=== PATIENT | male | born 1985 | race Caucasian/White ===

== ENCOUNTER 2020-05-16 20:55 | Emergency (ER) | payer OTHER ==
[~2020-05-16] VITALS: Ht 172.7 cm; Wt 83.9 kg
[2020-05-16 21:06] VITALS: BP 124/68
--- NOTE | 2020-05-16 21:25 | NUR ---
KATELIN MEADOWS AT BEDSIDE FOR DERMABOND PROCEDURE.
[2020-05-16] MEDS ORDERED: TDAP [DIPH/PERTUSSIS/TET] 0.5 ML VIAL IM ONE ×2 (21:28→21:30)
--- NOTE | 2020-05-16 21:33 | NUR ---
TECH AT BEDSIDE FOR RIGHT FINGER SPLINT.
== END 2020-05-16 21:44 | disposition home or self-care (01) ==
LOC: ER 20:59
DX: S61.011A Laceration without foreign body of right thumb without damage to nail, initial encounter (principal); W26.0XXA Contact with knife, initial encounter; Y93.89 Activity, other specified; Y92.89 Other specified places as the place of occurrence of the external cause; Y99.8 Other external cause status
CPT/HCPCS: 90715